=== PATIENT | female | born 1965 | race Caucasian/White ===

== ENCOUNTER 2023-09-28 20:57 | Emergency (ER) | payer OTHER, SELFPAY ==
[2023-09-28 21:10] VITALS: BP 133/67
--- NOTE | 2023-09-28 23:05 | ED.GENMED ---
History of Present Illness
<JEREMY Myrick - Last Filed: 09/29/23 00:45>
General
Chief Complaint: Musculo-Skeletal Complaint
Source: patient
Time Seen by Provider: 09/28/23 22:48
Travel History
Have you had any contact with someone who has COVID-19?: No
Do you have any symptoms of coronavirus? Fever > 100 degrees, chills, cough, shortness of breath, sore throat, loss of taste or smell, muscle aches, or headache?: No
History of Present Illness
History of Present Illness:
58 year old female who presents with L ankle pain and swelling s/p trip and fall that occurred just prior to arrival. Pt was taking out the trash when she walked on uneven pavement and tripped and rolled her L ankle, internally inverting it. She
fell to the ground. Denies head injury, LOC, back pain, other pain to extremities. She was unambulatory after and her boyfriend and son lifted her off the ground. She took a ibuprofen 400 mg at home just prior to arrival. Denies hx of prior injury
to L ankle.
Past History
<JEREMY Myrick - Last Filed: 09/29/23 00:45>
Past History
ED Past Medical History: Psychiatric (Impression)
ED Past Surgical History: Gynecological (Leep procedure)
Social History
Tobacco: Non-smoker
Alcohol: None
Personal: Single
Living: with family
Family History
Family History: Other
Review of Systems
<JEREMY Myrick - Last Filed: 09/29/23 00:45>
Review of Systems
Allergies reviewed?: Yes
All Other Systems: ROS reviewed and negative except as documented in HPI and ROS
Constitutional: Reports no symptoms
EENT: Reports no symptoms
Respiratory: Reports no symptoms
Cardiac: Reports no symptoms
ABD/GI: Reports no symptoms
: Reports no symptoms
Musculoskeletal: Reports joint pain (L ankle) and joint swelling (L ankle)
Skin: Reports no symptoms
Neurological: Reports no symptoms
Endocrine: Reports no symptoms
Hematologic/Lymphatic: Reports no symptoms
Psychiatric: Reports no symptoms
Phy Exam
<JEREMY Myrick - Last Filed: 09/29/23 00:45>
General Physical Exam
General Presentation: well appearing and no apparent distress
General age: appears stated age
General Skin: warm
General Habitus: normal
General Mental: alert
General Hydration: appears well hydrated
Cardiovascular Exam
Cardiovascular Exam: regular rate/rhythm, no edema, no gallop, no murmur and normal peripheral pulses
Pulmonary Exam
Pulmonary Exam: lungs clear, no respiratory distress, no rales, no crackles, no rhonchi, no wheezing and no cough
Neurological Exam
Neurological Exam: alert, oriented x3, no motor deficits and no sensory deficits
Musculoskeletal Exam
Musculoskeletal Exam: other (Pain with ROM of L ankle, no deformities, tenderness to palpation of inferior aspect of L lateral malleolus with mild swelling and erythema, no warmth, LLE neurovascularly intact)
Psychiatric Exam
Psychiatric Exam: normal mood/affect
Course
<JEREMY Myrick - Last Filed: 09/29/23 00:45>
Orders/Labs/Results
Orders:
Orders
09/28/23 21:13
CR Ankle - Left Min 3 Views Urgent
Comment:
Reason For Exam: fall, injury
09/28/23 23:17
Rafi Wrap Left-Treatment ONCE
Air Splint Left-Treatment ONCE
Crutches-Treatment ONCE
Ketorolac [Toradol] 30 mg IM NOW STA
09/28/23 23:18
Splints/Slings/Crut- Treatment ONCE
Crutches: Yes
Location: Left
Type of Splint: Air Splint
Vital Signs
Initial and Last Documented VS:
Initial Vital Signs
Temp Pulse Resp BP Pulse Ox
98.2 F 87 18 133/67 98
09/28/23 21:10 09/28/23 21:10 09/28/23 21:10 09/28/23 21:10 09/28/23 21:10
Last Documented Vital Signs
Temp Pulse Resp BP Pulse Ox
98.2 F 87 18 133/67 98
09/28/23 21:10 09/28/23 21:10 09/28/23 21:10 09/28/23 21:10 09/28/23 21:10
<Shasha Hough, DO - Last Filed: 09/28/23 23:27>
Orders/Labs/Results
Orders:
Orders
09/28/23 21:13
CR Ankle - Left Min 3 Views Urgent
Comment:
Reason For Exam: fall, injury
09/28/23 23:17
Rafi Wrap Left-Treatment ONCE
Air Splint Left-Treatment ONCE
Crutches-Treatment ONCE
Ketorolac [Toradol] 30 mg IM NOW STA
09/28/23 23:18
Splints/Slings/Crut- Treatment ONCE
Crutches: Yes
Location: Left
Type of Splint: Air Splint
Vital Signs
Initial and Last Documented VS:
Initial Vital Signs
Temp Pulse Resp BP Pulse Ox
98.2 F 87 18 133/67 98
09/28/23 21:10 09/28/23 21:10 09/28/23 21:10 09/28/23 21:10 09/28/23 21:10
Last Documented Vital Signs
Temp Pulse Resp BP Pulse Ox
98.2 F 87 18 133/67 98
09/28/23 21:10 09/28/23 21:10 09/28/23 21:10 09/28/23 21:10 09/28/23 21:10
<JEREMY Myrick - Last Filed: 09/29/23 00:45>
MDM/Problems Addressed
Differential Diagnosis Includes:
L ankle sprain, L ankle fracture or dislocation
MDM/Problems Addressed:
58 year old female who presents with L ankle pain and swelling after rolling her ankle just prior to arrival.
Chronic conditions affecting care: Cancer (Skin CA)
<JEREMY Myrick - Last Filed: 09/29/23 00:45>
*Critical Care Note
Total Time (30-74mins, 75-104mins- exclusive of procedures): Not Applicable
<Shasha Hough DO - Last Filed: 09/28/23 23:27>
*Radiology
Radiology exam reviewed: radiology read reviewed
*Pulse Oximetry
Patient hypoxic: no
ED Attending Note
<JEREMY Myrick - Last Filed: 09/29/23 00:45>
-
Portions of this chart may have been created with voice recognition software.� Occasional wrong word or��sound alike� substitutions may have occurred due to the inherent limitations of voice recognition software.
<Shasha Hough DO - Last Filed: 09/28/23 23:27>
ED Attending Note
Patient seen and examined by attending physician: Yes
I performed the substantive portion of visit, reviewed & personally made and approve the management plan that is documented in note by myself or MARQUISE.: Yes
I performed a history and physical exam of patient and discussed management with resident, I reviewed resident's note and agree with documented findings and plan of care.: Yes
ED Attending Note:
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
She complains of mechanical trip and fall around 7:30 PM tonight, rolling her left ankle. She complains of moderate pain about the left lateral ankle with difficulty bearing weight. She did take ibuprofen 400 mg shortly after injury. She denies
additional injuries, denies head injury, denies neck nor back pain. She denies weakness nor numbness. No previous ankle injuries.
PHYSICAL EXAMINATION:
General: 58-year-old woman appears her stated age, bright and alert, pleasant, appears in no acute distress.
HEENT: Normocephalic, atraumatic. Oral mucosa is moist.
Neuro: alert and oriented. no focal neurological deficits
Psychiatric: well kept. interactive and cooperative
Musculoskeletal: [Left ankle has very minimal soft tissue swelling lateral aspect along with moderate local tenderness along the lateral ankle with mildly restricted range of motion of left ankle related to lateral ankle
pain. There is no tenderness to the foot nor lower leg. Peripheral pulses are full and equal bilaterally. Sensation and strength intact.]
SKIN: Warm and dry, normal color. Good turgor. No rashes or abrasions.
Concern for left lateral ankle sprain/strain versus fracture.
Left ankle x-ray is unremarkable. No evidence of fracture. Ankle mortise is intact.
History, exam and x-ray consistent with acute mild to moderate left ankle sprain.
Will give an IM dose of Toradol to assist with pain control and will plan for Rafi wrap, ankle air splint and crutches for nonweight bearing.
Will prescribe ibuprofen for as needed pain.
Recommend ice, elevation, compression with Rafi wrap, maintain nonweightbearing status until able to bear weight comfortably.
Will refer to orthopedics for follow-up.
Discharge Plan
Departure
Patient Disposition: Home (Routine Discharge)
Date of Disposition: 09/28/23
Time of Disposition: 23:25
Patient with high blood pressure during this ER visit?: No
Condition: Good
Discharge Problem:
acute left ankle sprain
Instructions: How to Use Crutches, Ankle Sprain ED
Prescriptions:
New
ibuprofen 800 mg tablet
800 mg PO QIDPRN PRN (Reason: pain, fever) Qty: 30 0RF
Referrals:
Rambo Brandt MD [Active] - Call in 1-3 days for appt
Vangie Sequeira DO [Family Provider] -
Interventions
Interventions:
*Nursing Disposition Last Done: 09/29/23 00:05
ED-Musculoskeletal Assessment Last Done: 09/29/23 00:04
Discharge Date and Time
Discharge Date/Time: 09/29/23 00:05
Print Language: BHUTANESE
[2023-09-28] MEDS: TORADOL 30 MG IM (23:23)
== END 2023-09-29 00:05 | disposition home or self-care (01) ==
LOC: EMR 20:57
PROVIDERS: EMERGENCY PHYSICIAN Emergency Medicine; FAMILY PHYSICIAN Family Medicine
DX: S93.402A Sprain of unspecified ligament of left ankle, initial encounter (principal); W01.0XXA Fall on same level from slipping, tripping and stumbling without subsequent striking against object, initial encounter; Y93.01 Activity, walking, marching and hiking; Z85.828 Personal history of other malignant neoplasm of skin; Z88.1 Allergy status to other antibiotic agents; Z88.0 Allergy status to penicillin
CPT/HCPCS: 99284; 29515; 96372; 73610